=== PATIENT | female | born 2005 | race African-American/Black ===

== ENCOUNTER 2025-06-15 22:29 | Emergency (ER) | payer MEDICAID ==
[~2025-06-15] VITALS: Ht 162.6 cm; Wt 118.0 kg
[2025-06-15 22:37] VITALS: O2SAT 99
[2025-06-15 23:05] LABS: CLARITY URINE CLEAR (CLEAR); COLOR URINE YELLOW (YELLOW); GLUCOSE URINE NEGATIVE (NEGATIVE); KETONES URINE 1+ (NEGATIVE); LEUKOCYTE ESTERASE URINE NEGATIVE (NEGATIVE); NITRITE URINE NEGATIVE (NEGATIVE); OCCULT BLOOD URINE NEGATIVE (NEGATIVE); PH URINE 6.5 (4.5-8.0); PROTEIN URINE NEGATIVE (NEGATIVE); SPECIFIC GRAVITY URINE 1.004 (1.005-1.030); UROBILINOGEN URINE 0.2 E.U./dL (0.2-1.0)
[2025-06-16] MEDS: KETOROLAC 30MG/ML VIAL IM ONE (00:54)
[2025-06-16] MEDS: LIDOCAINE 5% PATCH TOP STA (00:54)
[2025-06-16] MEDS: ONDANSETRON 4MG ODT PO ONE (00:54)
[2025-06-16] MEDS: CYCLOBENZAPRINE 10MG TABLET PO ONE (00:54)
[2025-06-16] MEDS ORDERED: CYCL10TA21 MT (02:06)
[2025-06-16] MEDS ORDERED: LIDO700A30 TP (02:06)
[2025-06-16] MEDS ORDERED: IBUP-1455 MT (02:06)
[2025-06-16 02:19] VITALS: BP 104/68; PULSE 72; RESP 14; TEMP 36.8; O2SAT 100
== END 2025-06-16 02:19 | disposition home or self-care (01) ==
LOC: ER 22:29
DX: M54.50 Low back pain, unspecified (principal); R11.2 Nausea with vomiting, unspecified
CPT/HCPCS: 99284; 81003; 81025; 96372; J1885; Q0162